=== PATIENT | female | born 1985 | race Caucasian/White ===

== ENCOUNTER 2018-09-03 15:55 | Outpatient (REF) | payer BC, SELFPAY ==
--- NOTE | 2018-09-03 15:45 | PAPFT_PTH ---
PATIENT: Karma Morales LOC: [facility] U#:[id number] AGE/SX: 33/F ROOM: RE09/03/[address]: NICOLA Walker : 1985 BED: DIS: 09/03/2018 SPEC #: [id number] RECD: 09/03/18 17:40 STATUS: SHERI REiVral #: [id number] PEDRITO: 09/03/18 15:[address]: Angelica Nicole DEPT: [facility] Cytology RECD BY: Polly Abreu ENTERED: 09/03/18 17:40 SP TYPE: PAPFT OTHR DR: Leo Avalos Tissues: 1 - CX/ENDOCX FOR PAP SMEARS Procedures: PAP THIN PREP/UVM Screening HPV DNA PROBE Comments: [id number]
== END 2018-09-03 16:15 ==
LOC: LBN 15:55
PROVIDERS: PCP Family Medicine; Visit Provider Nurse Practitioner Family
DX: Z12.4 Encounter for screening for malignant neoplasm of cervix (principal); Z11.51 Encounter for screening for human papillomavirus (HPV)
CPT/HCPCS: 88142; 87624

== ENCOUNTER 2021-06-17 10:10 | Outpatient (CLI) | payer OTHER, SELFPAY ==
[2021-06-17 13:20] LABS: *AMPHETAMINES SCREEN URINE Negative (Negative); *BARBITURATES SCREEN URINE Negative (Negative); *BENZODIAZEPINES SCREEN URINE Negative (Negative); Cannabinoids THC Negative (Negative); Cocaine Screen,Urine Negative (Negative); METHADONE URINE SCREEN Negative (Negative); OPIATES URINE SCREEN Negative (Negative)
[2021-06-17 13:21] LABS: Tricyclic Antidepressants Negative (Negative)
[2021-06-17 14:54] LABS: Absolute Basophil Count 0.04 10^3/uL (0.0-0.2); Absolute Eosinophil Count 0.11 10^3/uL (0.0-0.7); Absolute Lymphocyte Count 1.89 10^3/uL (1.2-3.4); Absolute Monocyte Count 0.67 10^3/uL (0.1-0.8); Absolute Neutrophil Count 6.98 10^3/uL (1.2-6.7); Basophils % 0.4; Eosinophils % 1.1; HCT 35.1 % (36.0-46.0); HGB 12.1 g/dL (11.2-15.7); Lymphocytes % 19.3; MCH 29.7 pg (27.0-33.0); MCHC 34.5 % (32.0-36.0); MPV 9.2 fL (8.0-11.0); Monocytes % 6.8; Neutrophils % 71.4; Nucleated RBC 0 %; Platelet Count 290 10^3/uL (130-400); RBC 4.08 10^6/uL (3.93-5.22); RDW 11.7 % (11.7-14.6); RDW-SD 36.5 fL; WBC 9.79 10^3/uL (4.4-10.8)
[2021-06-17 15:54] LABS: TSH (W/Ref FT4) 0.09 uIU/mL (0.36-3.74)
[2021-06-17 16:11] LABS: FREE T4 1.22 ng/dL (0.76-1.46)
[2021-06-18 10:51] LABS: Varicella IgG Antibody Positive (See Note)
[2021-06-18 10:54] LABS: Rubella IgG Ab (UVM) Positive (See Note)
[2021-06-18 11:00] LABS: Hepatitis B Surface Ag Negative (Negative)
[2021-06-18 12:00] LABS: HIV-1/2 Ag & Ab Screen Negative (Negative)
[2021-06-18 12:10] LABS: Hepatitis C Ab w Rflx HCV PCR Negative (Negative)
[2021-06-18 15:23] LABS: Chlamydia Result Negative (Negative); GC Result Negative (Negative)
[2021-06-19 11:21] LABS: Syphilis Total Ab w/Reflex Nonreactive (Nonreactive)
[2021-06-23 14:53] LABS: Buprenorphine Negative ng/mL (Cutoff: 5.0)
== END 2021-06-17 10:11 | disposition home or self-care (01) ==
LOC: LBO 10:19
PROVIDERS: Nurse Practitioner Women's Health; PCP Family Medicine; Visit Provider Advanced Practice Midwife
DX: O09.521 Supervision of elderly multigravida, first trimester (principal); Z11.3 Encounter for screening for infections with a predominantly sexual mode of transmission; Z11.59 Encounter for screening for other viral diseases; Z11.4 Encounter for screening for human immunodeficiency virus [HIV]; N89.8 Other specified noninflammatory disorders of vagina; Z01.84 Encounter for antibody response examination; Z3A.10 10 weeks gestation of pregnancy
CPT/HCPCS: 36415; 80307; 86787; 86803; 86850; 86900; 86901; 87340; 87389; 87491; 87591; 84439; 84443; 85025; 86762; 86780; 87480; 87510; 87660

== ENCOUNTER 2021-07-20 03:57 | Outpatient (CLI) | payer OTHER, SELFPAY ==
[2021-07-20 08:47] LABS: Kit/Specimen SENT
== END 2021-07-20 03:58 | disposition home or self-care (01) ==
LOC: LBO 03:57
PROVIDERS: Obstetrics & Gynecology Gynecology; PCP Family Medicine; Visit Provider Advanced Practice Midwife
DX: Z36.89 Encounter for other specified antenatal screening (principal)
CPT/HCPCS: 36415

== ENCOUNTER 2021-08-24 02:18 | Outpatient (CLI) | payer OTHER, SELFPAY ==
[2021-08-24 14:32] LABS: Kit/Specimen SENT
== END 2021-08-24 02:19 | disposition home or self-care (01) ==
LOC: LBO 02:18
PROVIDERS: Obstetrics & Gynecology Gynecology; PCP Family Medicine; Visit Provider Advanced Practice Midwife
DX: Z34.91 Encounter for supervision of normal pregnancy, unspecified, first trimester (principal); Z36.8A Encounter for antenatal screening for other genetic defects
CPT/HCPCS: 36415

== ENCOUNTER 2021-09-27 10:21 | Outpatient (CLI) | payer OTHER, SELFPAY ==
[2021-09-27 17:48] LABS: TSH (W/Ref FT4) 1.38 uIU/mL (0.36-3.74)
== END 2021-09-27 10:22 | disposition home or self-care (01) ==
LOC: LBO 10:26
PROVIDERS: PCP Family Medicine; Visit Provider Advanced Practice Midwife
DX: Z34.92 Encounter for supervision of normal pregnancy, unspecified, second trimester (principal)
CPT/HCPCS: 36415; 84443

== ENCOUNTER 2021-10-19 02:52 | Outpatient (CLI) | payer OTHER, SELFPAY ==
[2021-10-19 16:37] LABS: HCT 34.5 % (36.0-46.0); HGB 11.4 g/dL (11.2-15.7); MCH 30.8 pg (27.0-33.0); MCV 93.2 fL (80-95); MPV 9.1 fL (8.0-11.0); Platelet Count 177 10^3/uL (130-400); RDW-SD 41.6 fL; WBC 10.07 10^3/uL (4.4-10.8)
[2021-10-19 16:45] LABS: Glucose,1 Hr (Glucola) 107 mg/dL (80-140)
== END 2021-10-19 02:53 | disposition home or self-care (01) ==
LOC: LBO 02:52
PROVIDERS: Advanced Practice Midwife; PCP Family Medicine; Visit Provider Advanced Practice Midwife
DX: Z34.92 Encounter for supervision of normal pregnancy, unspecified, second trimester (principal)
CPT/HCPCS: 36415; 82950; 85027

== ENCOUNTER 2021-10-29 09:13 | Outpatient (CLI) | payer OTHER, SELFPAY ==
--- NOTE | 2021-10-29 09:00 | RT.EKG_ITS ---
APPROVED REPORT Exam: Resting ECG Reason for Exam: RBBB Patient Location: O HR:87 bpm ECG Measurements Heart Rate 87 AXIS NM 125 P 71 QRSd 148 QRS 72 QT 396 T 20 QTc 477 Conclusion Sinus rhythm...normal P axis, V-rate 50- 99 Right bundle branch block...QRSd>120, terminal axis(90,270)
== END 2021-10-29 09:14 | disposition home or self-care (01) ==
LOC: DI.CARD 09:14
PROVIDERS: PCP Family Medicine; Visit Provider Internal Medicine Cardiovascular Disease
DX: I45.10 Unspecified right bundle-branch block (principal)
CPT/HCPCS: 93010

== ENCOUNTER → 2021-12-20 01:05 | Outpatient (CLI) | payer OTHER, SELFPAY ==
--- NOTE | 2021-12-20 07:30 | DI.US_ITS ---
Exam(s) US OB JENNIFER WEIGHT EXAM: US OB JENNIFER WEIGHT CLINICAL HISTORY: interval growth,covid,u07.1,O98.513. TECHNIQUE: Transabdominal obstetrical ultrasound performed. COMPARISON: US US OB 2-3 TRIMESTER from 08/24/2021 FINDINGS:: Number of fetuses: One. position: Vertex. Placental location: Posterior. No evidence of previa. BIOMETRIC DATA: BPD: 89mm = 35+ 6 weeks HC: 315mm = 35+3 weeks AC: 319mm = 35+5 weeks FL: 70 mm = 36 weeks EFW: 2272 Gms = 30% Composite Age: 35+5 weeks EDC: 19 January 2022 Heart Rate: 149BPM Amniotic fluid index: 8.1 cm. Amount of fluid is within normal limits. IMPRESSION: size and weight are within the expected range. DATA REPOSITORY:
== END ==
PROVIDERS: PCP Family Medicine; Visit Provider Advanced Practice Midwife
DX: O98.513 Other viral diseases complicating pregnancy, third trimester (principal); U07.1 COVID-19; Z3A.35 35 weeks gestation of pregnancy
CPT/HCPCS: 76816

== ENCOUNTER 2021-12-21 18:48 | Outpatient (REF) | payer OTHER, SELFPAY ==
[2021-12-21 20:05] LABS: *AMPHETAMINES SCREEN URINE Negative (Negative); *BARBITURATES SCREEN URINE Negative (Negative); *BENZODIAZEPINES SCREEN URINE Negative (Negative); Cannabinoids THC Negative (Negative); Cocaine Screen,Urine Negative (Negative); METHADONE URINE SCREEN Negative (Negative); OPIATES URINE SCREEN Negative (Negative); Tricyclic Antidepressants Negative (Negative)
[2021-12-29 12:05] LABS: Buprenorphine Negative ng/mL (Cutoff: 5.0); Norbuprenorphine Negative ng/mL (Cutoff: 2.5)
== END 2021-12-21 18:49 | disposition home or self-care (01) ==
LOC: LBN 18:48
PROVIDERS: PCP Family Medicine; Visit Provider Advanced Practice Midwife
DX: Z34.93 Encounter for supervision of normal pregnancy, unspecified, third trimester (principal)
CPT/HCPCS: 80307; 87081

== ENCOUNTER 2021-12-30 10:16 | Inpatient (IN) | payer OTHER, SELFPAY ==
[2021-12-30] VITALS (14 sets, daily range): BP systolic 117–135; BP diastolic 66–77; PULSE 60–72; RESP 16–18; TEMP 36.5–37; O2SAT 100
--- NOTE | 2021-12-30 09:57 | W.OBNST ---
Date of service: 12/30/21 Time of Service: 09:30 NST Evaluation Reason for NST Reasons for Nonstress Test: OTHER, SEE COMMENT Reason for NST Other: rule out labor Gestational Age Gestational Age in Weeks and Days: 38 Weeks and 1Days Test and Monitor Explained Test/Monitor Explained: Test Explained, Monitor Explained and Patient Verbalized Understanding Vital Signs Blood Pressure: 131/77 Pulse: 71 Temperature: 98.6 F NST Information Date on Monitor: 12/30/21 Time on Monitor: 09:02 Date off Monitor: 12/30/21 Time off Monitor: 09:30 Total Time on Monitor: 28 NST Interventions: PO Hydration Contraction Frequency: irregular NST Evaluation Patient States Movement: Present FHR Baseline: 125 Variability: Moderate 6-25 bpm Accelerations: 15x15 Decelerations: None NST Results: Reactive Note NST Note Note: NST is reactive and reassuring. Patient will remain for observation until ROM plus is back and then we will reassess her desire to continue observation vs discharge to home to return with more active labor. No fluid observed with VE, Nitrazine is negative. Membranes were palpated with exam. VE 1.5/80/-1 posterior, soft. Contrations are irregular and mild. ZANE NST Reviewed and Verified by: Tamica Roman
[2021-12-30 10:09] LABS: ROM Plus Positive
--- NOTE | 2021-12-30 10:18 | HPE_ITS ---
Date of service: 12/30/21 Time of Service: 10:18 Assessment and Plan Assessment and plan (1) Premature rupture of membranes (PROM) at term with onset of labor after 24 hours, antepartum: Status: Acute Assessment and plan: 1. SROM at 0630 today, small amounts, ROM + is positive 2. Admit, labs and COVID test 3. Expectant management at this time, will reassess in 4-6 hours for progress in labor pattern and if not actively laboring we will consider augmentation of labor. 4. GBS negative. OB-HPI Labor/Delivery History of Present Illness Reason for Visit: Rule out Chief Complaint: Uterine Contractions; Suspected Rupture of Membranes , Associated Signs and Symptoms of Suspected ROM: small gushes of amniotic fluid since 0630 today. ZANE. MICKEY Calculator Estimated Delivery Date Method Current WG Current Estimate 01/12/22 Ultrasound #1 38w 1d Other Estimates 01/04/22 LMP (Uncertain) 39w 2d Comments: reports small amounts of clear fluid since 0630 today and contractions that began at that time as well. denies vaginal bleeding. baby is acitve. she presented for NST and ROM plus both of which were positive. Admitted at this time for labor management and possible augmentation of labor if indicated. ZANE History of Present Expected Delivery Route/Plan - CNM FOB/cisco [place] (second child together) BG Gloria GBS negative Specific Issues/Plan 1. Advanced maternal age. Offered genetic testing, she will check insurance coverage and let us know her wishes. 1a. Offered level 2 ultrasound and MFM consult @ [facility], pt declines preferring [facility] anatomy survey @ 18 wks 1b. Pt desires cell free DNA test (Josiane), but declines CF/SMA screening and declines single marker AFP 1c. Claritest rejected due to late receipt of specimen -redrawn at 19 + 6 weeks 1d. Claritest neg X4, female, patient aware 2. History of right bundle branch block age 13 - symptomatic - referred to cardiology 2a.Patient prefers to have the cord maker after 10/23/21 due to large deductible 2b. Cardiology appt 10/29/21, EKG done, no concerns or f/up indicated 3. TSH at initial OB low at 0.09. Will recheck in 2nd trimester-1.38 4. Pt and FOB are fully vaccinated, pt's 12 yo son is also vaccinated 5. leg cramps- Magnesium supplements recommended 6. Had considered having TL but has decided to have a Mirena insertion @ 6 wks 7. >10 yrs since previous delivery, AMA of 35 at MICKEY, meets criteria for low dose ASA to reduce risk of gest HTN, noted at 23 wks, 7a. Reviewed recommendation with pt 09/22/21 on the phone - declines ASA at this time, 8. COVID+ antigen test at home: cough, sore throat, nasal congestion, mild sx without fever. Pt accepts growth scan @ 36 wks, US shows normal growth, JENNIFER 8.1 Assessment: History Reviewed & Current Review of Systems All systems reviewed & are unremarkable except as noted in HPI and below PFSH All Active Problems (Updated 12/30/21 @ 10:29 by Tamica Roman CNM) Premature rupture of membranes (PROM) at term with onset of labor after 24 hours, antepartum (Acute) (Acute) COVID-19 affecting in third trimester (Acute) Right bundle branch block (Acute) diagnosed age 13 at routine appointment. Saw cardiology at [facility]. asymptomatic History of Helicobacter pylori infection (Acute) Medical History Oral contraceptive use Vaginal discharge Surgical History Hx of appendectomy Family History Father Healthy adult Mother Healthy adult Maternal Aunt Breast cancer Paternal Cousin Breast cancer Social History Smoking/Tobacco Use Status: Never Smoking risk assessment performed?: Yes Alcohol Intake: never Drug use: Never Household members: significant other, children and other Details: BF-Tong. S- (12yo) Number of Children: 1 current occupation: [employer] Female Reproductive History Menstrual control method: pills History History 2 Para 1 Hx # Term Pregnancies 1 Multiple births 0 Hx # Pregnancies 0 Ectopic pregnancies 0 AB induced 0 Hx Number of Living Children 1 AB spontaneous 0 Past Pregnancies Del. Date GA/Weeks # Outcome Route Wgt Sex Labor Lgth Anesthes ia Location Prov Complic 06/06/09 40 Successful vaginal 7 lb 4 oz Male local Josie Vaughn MD Delivery Date: 06/06/09 Last Updated by: Rosie Fuller Meds Allergies and Home Medications Allergies Allergy/AdvReac Type Severity Reaction Status Date / Time Sulfa (Sulfonamide Allergy Unknown Verified 12/30/21 10:25 Antibiotics) nickel AdvReac Mild Rash Verified 12/30/21 10:25 Cats Allergy Severe Breathing Uncoded 12/30/21 10:25 difficulties Home Medications Medication Instructions Recorded Confirmed Type vit no.95-ferrous 1 tab PO DAILY 05/28/21 12/30/21 History fumarate 28 mg-folic acid 800 mcg tablet ferrous sulfate 325 mg (65 mg 325 mg PO DAILY 09/21/21 12/30/21 History iron) tablet Exam Physical Exam Vital signs: done on NST this morning, WNL. Vital Signs Reviewed: Yes Constitutional Constitutional: no acute distress Detailed Labor and Delivery Exam Dilation: 1.5 Effacement (%): 80 station: -1 Position: JUVENTINO Cervix position: posterior Consistency: soft Simms Score: Cervical Points Exam 0 1 2 3 Dilation Closed 1-2cm 3-4 cm 5-6cm Effacement 0-30% 40-50% 60-70% 80% Consistency Firm Medium Soft Station -3 -2 -1,0 +1,+2 Position Posterior Mid Anterior SIMMS Score(Cervical Ripeness Score): 8 Amniotic Membrane Status: Ruptured Rupture Method: Spontaneous Amniotic Fluid: Clear Nitrazine: Negative ROM Plus: Positive Monitor Mode: Palpation Contraction Frequency(min): 2-6 Contraction Duration(sec): 40-60 Contraction Intensity: Mild Comments: NST was performed prior to admission which was reactive and reassuring with irregular uterine contractions. Fetus A Heart Rate Baseline: 125 Monitor Accelerations: 15 X 15 Monitor Decelerations: None Variability: Moderate (6-25 BPM) Presentation: Cephalic Categories: Category I Est. Weight: 7 lb Date of Membrane Rupture: 12/30/21 Time of Membrane Rupture: 06:30 Assessment Note: NST prior to admission is reactive and reassuring. Will use intermittent FHR and palpation for further assessment. HEENT Exam HEENT Exam: Normal Neck Exam Neck Exam: Not Done Chest/Brest/Axilla Exam Chest Exam: Normal Breast Exam Breast Exam: Not Done Respiratory Exam Respiratory Exam: Normal Cardiovascular Exam Cardiovascular Exam: Normal Abdominal Exam Abdominal Exam: Normal (gravid, size equals dates. ZANE) Rectal Exam Rectal Exam: Not Done Exam Exam: Normal (no obvious leaking of fluid and membranes were palpable on exam, ROM + is positive. ZANE) Extremities Exam Extremities Exam: Normal Back/Spine/Pelvis Exam Pelvis Adequate: Yes Skin Exam Skin Exam: Normal Neurological Exam Neurological Exam: Normal Psychiatric Exam Psychiatric Exam: Normal Results Results Group Beta Strep: Negative Blood Type: O+ Rubella Status: Immune Varicella Immunity: Immune Risk Assessment Risk for Shoulder Dystocia Historical/Initial OB: NEGATIVE FOR: Pelvic Abnormality, Pre- BMI>30, Previous Shoulder Dystocia or Previous Macrosomia 40 Weeks: NEGATIVE FOR: EFW> 4500 gms, Maternal Weight Gain >40lb or Post Dates Delivery Plan @ 40 wks: ZANE Risk for Pre-Eclampsia Date Initiated/Initials: Increased risk noted at 23 wks, will discuss with pt. LINCOLN Yes, if one or more: NEGATIVE FOR: Hx Pre-E/Gest HTN, Chronic HTN, Multiple Gestation, Pre-gestational DM, Renal Disease, Systemic Lupus or APA Syndrome Yes, if 2 or more: POSITIVE FOR: Age>= 35 yrs and >10yr btwn pregnancies; NEGATIVE FOR: Nulliparity, BMI>30, ethinicty, Mother/Sister w/ Pre-E or Previous IUGR Risk for Post- Hemorrhage Initial: NEGATIVE FOR: Multiple Gestation, Previous PPH, Known Clotting Defic iency, Grand Multiparity or Anticoagulation At Risk?: No Counseled re: Active Management: Yes Date/Initials: 12/30/21 ZANE Risks Reviewed Risks Reviewed Upon Admission: Yes
[2021-12-30 10:42] LABS: HCT 38.9 % (36.0-46.0); MCH 30.2 pg (27.0-33.0); MCHC 33.4 % (32.0-36.0); MCV 90.3 fL (80-95); MPV 10.7 fL (8.0-11.0); Platelet Count 217 10^3/uL (130-400); RBC 4.31 10^6/uL (3.93-5.22); RDW 11.9 % (11.7-14.6)
[2021-12-30 11:25] LABS: Source Nasal/Nares
[2021-12-30 12:05] LABS: COVID-19 PCR Negative (Negative)
--- NOTE | 2021-12-30 13:25 | W.PM.OBNL1 ---
Date of service: 12/30/21 Time of Service: 13:26 Pelvic Exam Dilation: 3.5 Effacement (%): 90 station: -1 Position: JUVENTINO Cervix Position: posterior Consistency: soft Assessment and Plan Assessment and plan (1) Premature rupture of membranes (PROM) at term with onset of labor after 24 hours, antepartum: Status: Acute Assessment and plan: 1. cervical change of 2 cm in past 4 hours, contractions are more frequent and increased to moderate on palpation 2. continue present management, expect NVD. Objective Temp Pulse Resp BP 98.6 F 68 16 120/66 12/30/21 11:08 12/30/21 12:08 12/30/21 11:08 12/30/21 12:08 Laboratory Results WBC 10.80 10^3/uL (4.4-10.8) 12/30/21 10:32 RBC 4.31 10^6/uL (3.93-5.22) 12/30/21 10:32 Hgb 13.0 g/dL (11.2-15.7) 12/30/21 10:32 Hct 38.9 % (36.0-46.0) 12/30/21 10:32 MCV 90.3 fL (80-95) 12/30/21 10:32 MCH 30.2 pg (27.0-33.0) 12/30/21 10:32 MCHC 33.4 % (32.0-36.0) 12/30/21 10:32 RDW 11.9 % (11.7-14.6) 12/30/21 10:32 Plt Count 217 10^3/uL (130-400) 12/30/21 10:32 MPV 10.7 fL (8.0-11.0) 12/30/21 10:32 Membranes Rupture Positive 12/30/21 09:25 COVID-19 Source Nasal/Nares 12/30/21 10:50 SARS-CoV-2 (PCR) Negative (Negative) 12/30/21 10:50 Vital Signs Reviewed: Yes Subjective Interval history since last seen: Feels contractions are getting stronger. Is doing well being out of bed ambulating. Agrees to rupture of forewaters if no cervical change has occurred. Results Hemoglobin/Hematocrit: Hgb 13.0 g/dL (11.2-15.7) 12/30/21 10:32 Hct 38.9 % (36.0-46.0) 12/30/21 10:32
--- NOTE | 2021-12-30 17:21 | W.PM.OBNL1 ---
Date of service: 12/30/21 Time of Service: 17:21 Pelvic Exam Comments: VE deferred. KH Contractions Monitor Mode: Palpation Contraction Frequency(min): 2-3 Contraction Duration(sec): 60 Intensity: Moderate/Strong Fetus A Monitor: Doppler Heart Rate Baseline: 130 Assessment and Plan Assessment and plan (1) Premature rupture of membranes (PROM) at term with onset of labor after 24 hours, antepartum: Status: Acute Assessment and plan: 1. continue present management, labor is progressing spontaneously. 2. reassess in 4 hours or prn. Objective Temp Pulse Resp BP 97.7 F 60 16 128/72 12/30/21 14:31 12/30/21 16:55 12/30/21 11:08 12/30/21 16:55 Laboratory Results WBC 10.80 10^3/uL (4.4-10.8) 12/30/21 10:32 RBC 4.31 10^6/uL (3.93-5.22) 12/30/21 10:32 Hgb 13.0 g/dL (11.2-15.7) 12/30/21 10:32 Hct 38.9 % (36.0-46.0) 12/30/21 10:32 MCV 90.3 fL (80-95) 12/30/21 10:32 MCH 30.2 pg (27.0-33.0) 12/30/21 10:32 MCHC 33.4 % (32.0-36.0) 12/30/21 10:32 RDW 11.9 % (11.7-14.6) 12/30/21 10:32 Plt Count 217 10^3/uL (130-400) 12/30/21 10:32 MPV 10.7 fL (8.0-11.0) 12/30/21 10:32 Membranes Rupture Positive 12/30/21 09:25 COVID-19 Source Nasal/Nares 12/30/21 10:50 SARS-CoV-2 (PCR) Negative (Negative) 12/30/21 10:50 Patient ABO/Rh O Positive 12/30/21 10:32 Antibody Screen NEGATIVE 12/30/21 10:32 Subjective Interval history since last seen: contractions are much stronger per patient and per palpation. patient is working well with contractions and denies needs at this time. continues to leak small amounts of clear fluid. KH Results Hemoglobin/Hematocrit: Hgb 13.0 g/dL (11.2-15.7) 12/30/21 10:32 Hct 38.9 % (36.0-46.0) 12/30/21 10:32
--- NOTE | 2021-12-30 19:04 | W.OBDELIVERY ---
Date of service: 12/30/21 Time of Service: 19:05 OB Labor/ Delivery Information Baby A Delivery Delivery Method: Spontaneaous Presentation: Cephalic Cephalic Position: Vertex Vertex Position: Right Occipital Anterior Cord Description-Baby A: 3 Vessels Amniotic Fluid: Clear Estimated Blood Loss: 250 Delivery Outcome: Liveborn Complications: none Transferred: Remains with Mother Note: FHR had been reassuring by doppler and with tracing throughout labor and second stage. CAT I when on monitor. Patient felt urge to push and began bearing down at 1820. After first push there was a large gush of clear fluid. Baby was delivered ENEIDA at 1847. Shoulders deliver immediately after head and then baby was brought to Mother's abdomen for skin to skin. Positive family bonding observed. Baby 8 and 9, a 3 vessel cord noted. Placenta delivered via ragland mechanism, intact at 184. Fundus firms to U-1 with massage. EBL 250cc. skin tear at intoitus noted and reapproximated with 1 stitch of 3.0 vicryl after injection of 1% lidocaine. Cord blood were obtained after baby delivered and cord stopped pulsing at approximately 5 minutes of life. Sponge, needle and instrument count are correct. Baby girl Gloria is in satisfactory condition. Weight [id number]. Mother is in satisfactory condition. Expect normal PP course. Providers Nurse Community Board Member: Tamica Roman Nurse: Mary Batista Nurse: Nilo Barroso Labor/Delivery Information Number of Babies in Womb: 1 Steroids Given: None Reason Steroids Not Administered: N/A Group Beta Strep: Negative Rubella Status: Immune Blood Type: O+ Varicella Immunity: Immune Medication in Delivery: none Maternal Complications: None Shoulder Dystocia: No Stages of Labor Onset of Labor Date: 12/30/21 Onset of Labor Time: 06:30 Complete Dilatation Date: 12/30/21 Complete Dilatation Time: 18:20 Labor - Stage 1 Duration: 0 minutes ROM Baby A: 12/30/21 ROM Baby A: 06:30 ROM Total Time- Baby A: [id number] Infant Delivery Date-Baby A: 12/30/21 Delivery Time-Baby A: 18:40 Labor Stage 2 Duration: 20 minutes Placenta Delivery Date-Baby A: 12/30/21 Placenta Delivery Time-Baby A: 18:47 Labor-Stage 3 Duration: 7 minutes Total Length of Labor-Baby A: 12 hours and 10 minutes Placenta Cultured: No Placenta Status: Delivered Baby A Infant Gender: Female Gestational Status: Early Term (37-38.6 wks) Gestational Age in Weeks/Days: 38 Weeks and 1 Days Score-1 Minute Interval(Baby A) Heart Rate-1 minute: 100 BPM or Greater Respiratory Effort- 1 minute: Slow Respiration/Weak Cry Muscle Tone-1 minute: Active Movement Reflex Response-1 minute: Prompt Response Color-1 minute: Bluish Hands or Feet Total Score-1 minute: 8 Score-5 Minute Interval(Baby A) Heart Rate- 5 minute: 100 BPM or Greater Respiratory Effort-5 minute: Spontaneous/Strong Cry Muscle Tone-5 minute: Active Movement Reflex Response-5 minute: Prompt Response Color-5 minute: Bluish Hands or Feet Total Score- 5 minute: 9
[2021-12-30] MEDS: Acetaminophen 325 MG TAB 650 MG PO (21:41)
[2021-12-31 03:51] VITALS: BP 131/81; PULSE 78; RESP 18; TEMP 36.7
[2021-12-31 07:40] VITALS: BP 112/75; PULSE 76; RESP 18; TEMP 36.6; O2SAT 97
--- NOTE | 2021-12-31 08:12 | W.PM.OBPNV1 ---
Date of service: 12/31/21 Time of Service: 08:12 Assessment and Plan Assessment and plan (1) care following vaginal delivery: Status: Acute Assessment and plan: 1. Continue present management 2. Expect discharge tomorrow. 3. Planning IUD at 4 or 6 week PP visit. ZANE (2) Lactating mother: Status: Acute Assessment and plan: 1. experienced breast feeding mother, with nursing already well established 2. continue present management. ZANE Subjective Subjective Interval history: Feeling well. Breast feeding is going well. Patient is up to bathroom without assist and has no complaints of discomfort. Bleeding is minimal. Plans discharge tomorrow. will have a 2week, 4 week and 6 week PP visit with IUD insertion at 4 or 6 week visit. Patient's Mood: happy. Zane [place] baby status: Doing well and Nursing well [place] feeding status: Exclusively breast feeding Exam Physical Exam Vital signs: Temp Pulse Resp BP Pulse Ox 97.9 F 76 18 112/75 97 12/31/21 07:40 12/31/21 07:40 12/31/21 07:40 12/31/21 07:40 12/31/21 07:40 Vital Signs Reviewed: Yes Constitutional Constitutional: no acute distress, average body habitus and cooperative HEENT Exam HEENT Exam: Normal Neck Exam Neck Exam: Normal (normal visual exam. ) Breast Exam Bilateral: Breast Exam: Normal Nipple Exam: Normal Respiratory Exam Respiratory Exam: Normal Cardiovascular Exam Cardiovascular Exam: Normal Abdominal Exam Abdomen: Other (normal exam. ) Fundal Exam Fundus: Below Umbilicus and Firm Rectal Exam Rectal Exam: Not Done Exam Perineum: Normal and Repair Intact External: Present normal urethra appearance Extremities Exam Extremity Exam: Normal and Full ROM Back/Spine/Pelvis Exam Back Exam: Not Done Skin Exam Skin Exam: Normal Neurological Exam Neurological Exam: Normal Psychiatric Exam Psychiatric Exam: Normal Results Hemoglobin/Hematocrit: Hgb 13.0 g/dL (11.2-15.7) 12/30/21 10:32 Hct 38.9 % (36.0-46.0) 12/30/21 10:32
[2021-12-31 13:00] VITALS: BP 116/78; PULSE 71; RESP 16; TEMP 36.6; O2SAT 97
[2021-12-31] MEDS: Acetaminophen 325 MG TAB 650 MG PO (13:09)
[2021-12-31 15:55] VITALS: BP 115/78; PULSE 69; RESP 12; TEMP 36.9; O2SAT 98
[2021-12-31 20:10] VITALS: BP 123/76; PULSE 68; RESP 16; TEMP 36.8
--- NOTE | 2022-01-01 07:47 | W.PM.OBDISCH ---
Date of service: 01/01/22 Time of Service: 07:47 DS: Diagnosis Discharge Diagnosis (1) care following vaginal delivery: Status: Acute Asessment and Plan: continue taking vitamin and I encourage Vitamin D3 1000 daily as well while breast feeding epsom salt in sitz bath for small hemorrhoid, anusol cream as current use. reviewed PP warning signs and when to call RTO 2 week, 4 week and 6 week PP for visits and IUD insertion as desired. KH (2) Lactating mother: Status: Acute Asessment and Plan: continue present management call provider if symptoms of mastitis RTO as scheduled and keep pediatric appointments. Discharge Plan Disposition Patient Disposition: HOME Condition: Good Discharge Details Reason For Visit: SROM Admit Date/Time: 12/30/21 10:16 Admit Provider: Tamica Roman Attending Provider: Tamica Roman [facility] Course: Normal progression of labor after SROM with vaginal delivery with small 1st degree lac on perineum repaired with 3.0 vicryl 1 stitch under local anesthesia. Baby manisha Castro weighed 7lb 11 oz. No complications. Breast feeding well established. Expect normal PP course, plans IUD at 4 or 6 week visit. Home Meds and New Rx's Prescriptions: Continued PNV cmb#95-ferrous fumarate-FA 28 mg iron- 800 mcg tablet 1 tab PO DAILY 0RF Discontinued ferrous sulfate 325 mg (65 mg iron) tablet 325 mg PO DAILY 0RF Discharge Instructions Stand Alone Forms: BC Instructions, BC Post Vaginal Deliver Activity:: Activity as Tolerated Equipment/Supplies:: No Equipment Needed Diet:: As Tolerated Discharge Orders Discharge Orders: Discharge Order (Routine); Ordered 01/01/22 Ordered By: Tamica Roman OB:DS Summary Summary Vaginal Delivery Method: Spontaneaous Episiotomy Description: None Laceration Description: None Laceration Extension: N/A Contraception Discussed Contraception Discussed: Yes Contraceptive Plan: IUD (4-6 weeks PP), Gender-Baby A: Female weight: 7 lb 11.635 oz Status at Discharge Functional status at discharge: independent ambulation Overall status at discharge: patient is back to baseline Mental Status: mental status grossly normal Speech and Movement: speech and movement normal Mood: congruent mood Affect: normal affect Exam Physical Exam Vital signs: Temp Pulse Resp BP Pulse Ox 98.2 F 68 16 123/76 98 12/31/21 20:10 12/31/21 20:10 12/31/21 20:10 12/31/21 20:10 12/31/21 15:55 Vital Signs Reviewed: Yes Constitutional Constitutional: no acute distress, average body habitus and cooperative HEENT Exam HEENT Exam: Normal Neck Exam Neck Exam: Normal (on visual inspection no mass, full range of motion. ) Breast Exam Bilateral: Breast Exam: Normal Nipple Exam: Normal Respiratory Exam Respiratory Exam: Normal Cardiovascular Exam Cardiovascular Exam: Normal Abdominal Exam Abdomen: Diastasis (2 fingerbreadths, non tender) Fundal Exam Fundus: Below Umbilicus and Firm Rectal Exam Comments: 1cm soft pink hemorrhoid noted otherwise normal exam. Exam Perineum: Normal and Repair Intact External: Present normal urethra appearance Extremities Exam Extremity Exam: Normal and Full ROM Back/Spine/Pelvis Exam Back Exam: Normal Skin Exam Skin Exam: Normal Neurological Exam Neurological Exam: Normal Psychiatric Exam Psychiatric Exam: Normal Additional findings Additional findings: Excellent bonding. Denies signs of PP blues. Has good support at home. [facility] All Active Problems Lactating mother (Acute) care following vaginal delivery (Acute) Premature rupture of membranes (PROM) at term with onset of labor after 24 hours, antepartum (Acute) (Acute) COVID-19 affecting in third trimester (Acute) Right bundle branch block (Acute) diagnosed age 13 at routine appointment. Saw cardiology at [facility]. asymptomatic History of Helicobacter pylori infection (Acute) Medical History Oral contraceptive use Vaginal discharge Surgical History Hx of appendectomy Family History Father Healthy adult Mother Healthy adult Maternal Aunt Breast cancer Paternal Cousin Breast cancer Social History Smoking/Tobacco Use Status: Never Smoking risk assessment performed?: Yes Alcohol Intake: never Drug use: Never Household members: significant other, children and other Details: BF-Tong. S-(12yo) Number of Children: 1 current occupation: [employer] Female Reproductive History Menstrual control method: pills History History 2 Para 1 Hx # Term Pregnancies 1 Multiple births 0 Hx # Pregnancies 0 Ectopic pregnancies 0 AB induced 0 Hx Number of Living Children 1 AB spontaneous 0 Past Pregnancies Del. Date GA/Weeks # Outcome Route Wgt Sex Labor Lgth Anesthesia Location [facility] 06/06/09 40 Successful vaginal 7 lb 4 oz Male local Josie Vaughn MD Delivery Date: 06/06/09 Last Updated by: Rosie Fuller DS: Data Vitals/I&O Vitals and I&O: Vital Signs Temperature 98.2 F 12/31/21 20:10 Pulse 68 12/31/21 20:10 Pulse Rhythm Regular 12/31/21 20:10 Respiratory Rate 16 12/31/21 20:10 Blood Pressure 123/76 12/31/21 20:10 Blood Pressure Mean 91 12/31/21 20:10 Pulse Oximetry 98 12/31/21 15:55 Oxygen Delivery Method Room Air 12/30/21 11:08 Oxygen Flow Rate 0 12/30/21 11:08 Pain Level 0 12/31/21 20:10 Intake & Output 12/31/21 12/31/21 01/01/22 11:59 23:59 11:59 Intake Total 550 / 550 Output Total 900 / 900 Balance -350 / -350 Intake: Oral 550 / 550 Output: Urine 900 / 900
[2022-01-01 08:15] VITALS: BP 115/72; PULSE 68; RESP 14; TEMP 36.9
== END 2022-01-01 11:20 | disposition home or self-care (01) | DRG 805 ==
LOC: BCD 12-31 10:05 → OBS 12-31 10:05
PROVIDERS: Admitting Provider Advanced Practice Midwife; PCP Family Medicine; Visit Provider Advanced Practice Midwife
DX: O42.12 Full-term premature rupture of membranes, onset of labor more than 24 hours following rupture (principal); O99.42 Diseases of the circulatory system complicating childbirth; Z37.0 Single live birth; O71.89 Other specified obstetric trauma; I45.9 Conduction disorder, unspecified; Z3A.38 38 weeks gestation of pregnancy; Z86.16 Personal history of COVID-19; I45.10 Unspecified right bundle-branch block
CPT/HCPCS: 59025; 36415; 84112; 85027; 86850; 86900; 86901; 87635; G0378; J3490

== ENCOUNTER 2022-01-31 13:08 | Outpatient (REF) | payer OTHER, SELFPAY ==
--- NOTE | 2022-01-31 11:30 | PAPFT_PTH ---
PATIENT: Karma Morales LOC: [facility] U#:[id number] AGE/SX: 37/F ROOM: RE01/31/[address]: Rafaela Fernández CNM : 1985 BED: DIS: 01/31/2022 SPEC #: [id number] RECD: 01/31/22 18:14 STATUS: SHERI REQ #: [id number] PEDRITO: 01/31/22 11:[address]: Rafaela Fernández DEPT: [facility] Cytology RECD BY: Polly Abreu ENTERED: 01/31/22 18:15 SP TYPE: PAPFT OTHR DR: Leo Avalos Tissues: 1 - CX/ENDOCX FOR PAP SMEARS Procedures: PAP THIN PREP/[facility] Screening HPV DNA PROBE Comments: [id number] (CHLAMYDIA/GC)
[2022-02-01 15:34] LABS: Chlamydia Result Negative (Negative); GC Result Negative (Negative)
== END 2022-01-31 13:09 | disposition home or self-care (01) ==
LOC: LBN 13:08
PROVIDERS: PCP Family Medicine; Visit Provider Advanced Practice Midwife
DX: Z11.3 Encounter for screening for infections with a predominantly sexual mode of transmission (principal); Z12.4 Encounter for screening for malignant neoplasm of cervix; Z11.51 Encounter for screening for human papillomavirus (HPV)
CPT/HCPCS: 87491; 87591; 88142; 87624

== ENCOUNTER → 2024-05-08 01:59 | Outpatient (CLI) | payer OTHER, SELFPAY ==
--- NOTE | 2024-05-08 07:30 | DI.MAMMO_ITS ---
Exam(s) MAMMO SCREENING EXAM: MAMMO SCREENING CLINICAL HISTORY: screening,z12.31, family h/o breast ca. TECHNIQUE: Bilateral full field digital CC and MLO mammographic images were obtained with 3D tomosyn thesis and utilizing computer aided detection (CAD). COMPARISON: None. This is a baseline mammogram on this 39-year-old. FINDINGS: Glandular tissue pattern is moderately dense. There are no CAD designations. There are no spiculated masses nor malignant appearing microcalcification groups. Benign-appearing lymph node in the upper quadrant of the left breast noted. There is no significant architectural distortion nor skin thickening-retraction. IMPRESSION: No radiographic evidence of malignancy. BI-RADS Category 1 - Negative Breast Density - Category C - Heterogeneously dense Breast density Category C or D implies that the patient has dense breast tissue. Dense breast tissue can make it harder to find cancer on a mammogram. Dense breast tissue is also associated with an incr eased risk of breast cancer. This information about the result of the mammogram report was provided to the patient to raise their awareness. Use this report when you speak with the patient about their risks for breast cancer, which includes their family history. At that time, you may recommend additional screening tests (Ultrasoun d or MRI) as these tests may add significant information. A negative radiographic report should not delay biopsy if a dominant or clinically suspicious mass is present. Up to ten percent of cancers are not identified on mammography. A negative report may reinforce clinical impression. Adenosis and dense breasts may obscure an underlying neoplasm. False positive reports average 6 to 10%. Patient will receive a letter notifying them of these results.
== END ==
PROVIDERS: PCP Family Medicine; Visit Provider Obstetrics & Gynecology
DX: Z12.31 Encounter for screening mammogram for malignant neoplasm of breast (principal); Z80.3 Family history of malignant neoplasm of breast
CPT/HCPCS: 77063; 77067

== ENCOUNTER 2025-05-12 00:22 | Outpatient (CLI) | payer OTHER, SELFPAY ==
--- NOTE | 2025-05-12 15:45 | DI.MAMMO_ITS ---
Exam(s) MAMMO SCREENING EXAM: MAMMO SCREENING CLINICAL HISTORY: screening TECHNIQUE: Mammograms were interpreted according to the usual protocol including computer analysis with CAD system, tomosynthesis and C-view imaging. COMPARISON: 2020 FINDINGS: The breasts are composed of heterogeneously dense fibroglandular densities, Breast Density category C. No suspicious masses or suspicious microcalcifications are seen. No skin thickening or abnormal axillary lymph nodes are seen. There has been no significant change from prior exams. IMPRESSION: BI-RADS Category 1, Negative mammogram. Yearly screening mammography is recommended. Breast Density: Category C - The breasts are heterogeneously dense, which may obscure small masses. Breast density Category C or D implies that the patient has dense breast tissue. Dense breast tissue can make it harder to find cancer on a mammogram. Dense breast tissue is also associated with an increased risk of breast cancer. This information about the result of the mammogram report was provided to the patient to raise their awareness. Use this report when you speak with the patient about their risks for breast cancer, which includes their family history. At that time, you may recommend additional screening tests (Ultrasound or MRI) as these tests may add significant information. A negative radiographic report should not delay biopsy if a dominant or clinically suspicious mass is present. Up to ten percent of cancers are not identified on mammography. A negative report may reinforce clinical impression. Adenosis and dense breasts may obscure an underlying neoplasm. False positive reports average 6 to 10%.
== END 2025-05-12 00:42 ==
LOC: DI 00:22
PROVIDERS: Visit Provider Nurse Practitioner Women's Health
DX: Z12.31 Encounter for screening mammogram for malignant neoplasm of breast (principal); Z80.3 Family history of malignant neoplasm of breast; R92.333 Mammographic heterogeneous density, bilateral breasts
CPT/HCPCS: 77063; 77067